=== PATIENT | female | born 1995 | race Two or more races ===

== ENCOUNTER 2025-03-03 19:17 | Emergency (ER) | payer OTHER ==
[~2025-03-03] VITALS: Ht 162.6 cm; Wt 68.6 kg
[2025-03-03 19:23] VITALS: TEMP 99
[2025-03-03] MEDS ORDERED: SERT-438 PO (19:45)
[2025-03-03] MEDS ORDERED: CETI10TA58 PO (19:45)
[2025-03-03] MEDS ORDERED: ADAL40PE5 SQ (19:45)
[2025-03-03 19:50] LABS: APPEARANCE,URINE HAZY (CLEAR); GLUCOSE, URINE (UA) NEGATIVE (NEGATIVE); LEUKOCYTE ESTERASE ,URINE LARGE (NEGATIVE); NITRATE,URINE NEGATIVE (NEGATIVE); OCCULT BLOOD,URINE MODERATE (NEGATIVE); SPECIFIC GRAVITIY, URINE 1.012 (1.003-1.030)
[2025-03-03 20:00] LABS: SQUAMOUS EPITHELIAL CELL,UR Rare /LPF (None Seen)
[2025-03-03] MEDS ORDERED: ACET-66 PO (20:12)
[2025-03-03] MEDS ORDERED: CEPH-558 PO (20:12)
[2025-03-03] MEDS ORDERED: PHEN-674 PO (20:12)
[2025-03-03] MEDS ORDERED: IBUP-1554 PO (20:12)
[2025-03-03] MEDS: ACETAMINOPHEN 500 MG TABLET PO ONE (20:15)
[2025-03-03] MEDS: IBUPROFEN 600 MG TABLET PO ONE (20:15)
[2025-03-03] MEDS: PHENAZOPYRIDINE HCL 100 MG TABLET PO ONE (20:15)
[2025-03-03] MEDS: CEPHALEXIN MONOHYDRATE 500 MG CAPSULE PO ONE (20:16)
[2025-03-03] MEDS: CIPROFLOXACIN HCL 250 MG TABLET PO ONE (20:16)
[2025-03-03 20:20] VITALS: BP 121/73; PULSE 90; RESP 20; O2SAT 98
== END 2025-03-03 20:24 | disposition home or self-care (01) ==
LOC: EMS 19:17
DX: N39.0 Urinary tract infection, site not specified (principal); Z79.899 Other long term (current) drug therapy
CPT/HCPCS: 81001; 84703; 87077; 87086; 87186; 99284; Z7502; Z7610